=== PATIENT | male | born 1940 | race Caucasian/White ===

== ENCOUNTER 2022-08-16 11:15 | Day surgery (SDC) | payer MEDICARE ==
[~2022-08-16 11:15] MED LIST: Iopamidol-M 300 61% 15 ML VIAL ONE
[2022-08-16] MEDS ORDERED: Sodium Bicarbonate 2.5 MEQ/5 ML VIAL ONE (11:41)
[2022-08-16] MEDS ORDERED: Lidocaine 1% PF 5 ML VIAL ONE (11:41)
== END 2022-08-16 13:31 | disposition home or self-care (01) ==
LOC: CSHRAD 11:15
PROVIDERS: ATTEND Neurological Surgery
DX: M48.062 Spinal stenosis, lumbar region with neurogenic claudication (principal); M47.12 Other spondylosis with myelopathy, cervical region; M54.6 Pain in thoracic spine; I10 Essential (primary) hypertension; E78.5 Hyperlipidemia, unspecified; E03.9 Hypothyroidism, unspecified; Z88.2 Allergy status to sulfonamides; Z90.89 Acquired absence of other organs; Z79.890 Hormone replacement therapy; Z79.899 Other long term (current) drug therapy
CPT/HCPCS: 62305; 72126; 72129; 72132; Q9967